=== PATIENT | male | born 1970 | race Caucasian/White ===

== ENCOUNTER → 2018-11-09 | Outpatient (CLI) | payer BC ==
--- NOTE | 2018-11-09 14:58 | RAD ---
Lumbar spine, 3 views, 11/09/2018: HISTORY: Low back pain No fracture or subluxation is identified. The intervertebral disc spaces are well-maintained. There are a few scattered marginal spurs. The paraspinous soft tissues are unremarkable. IMPRESSION: 1. Mild scattered degenerative changes. 2. No acute abnormality is detected. Electronically signed by: Perico Emmanuel MD (11/09/2018 2:53 PM) [facility]
--- NOTE | 2018-11-09 15:00 | RAD ---
Sternum, 2 views, 11/09/2018: HISTORY: Sternal pain The sternum is not clearly defined on these radiographs, as is often the case. A lucency projected over the sternal body on the lateral view is probably due to an overlying shadow, although a fracture cannot be excluded. If there is a high clinical suspicion of sternal pathology, CT scanning is suggested for further evaluation. Electronically signed by: Perico Emmanuel MD (11/09/2018 2:55 PM) [facility]
--- NOTE | 2018-11-09 15:02 | RAD ---
Thoracic spine, 3 views, 11/09/2018: HISTORY: Back pain No fracture or subluxation is evident. There are mild scattered marginal spurs. The paraspinous soft tissues are unremarkable. IMPRESSION: 1. Mild marginal spurring. 2. No acute abnormality is detected. Electronically signed by: Perico Emmanuel MD (11/09/2018 2:57 PM) [facility]
== END | disposition home or self-care (01) ==
LOC: RAD 13:38
PROVIDERS: ATTEND Family Medicine
DX: M47.896 Other spondylosis, lumbar region (principal); M46.06 Spinal enthesopathy, lumbar region; M46.04 Spinal enthesopathy, thoracic region; R07.2 Precordial pain
CPT/HCPCS: 71120; 72072; 72100

== ENCOUNTER → 2018-11-11 | Outpatient (CLI) | payer BC ==
[~2018-11-11] MED LIST: IOHEXOL 300 MG/ML 75 ML VIAL. IV ONE; IOHEXOL 300 MG/ML 75 ML VIAL. ONE
--- NOTE | 2018-11-11 12:17 | RAD ---
CT of the chest with contrast, 11/11/2018: HISTORY: Sternal pain Multidetector CT imaging was performed following an IV bolus injection of iodinated contrast material. The thoracic aorta is of normal caliber. The heart is mildly enlarged. No mediastinal or hilar adenopathy is evident. There is minimal dependent atelectasis in both lower lobes. No pulmonary mass or significant infiltrate is seen. There is no evidence of pleural fluid. There are mild scattered spurs in the spine. No fracture or destructive bony lesion is seen. IMPRESSION: 1. Mild cardiomegaly. 2. Minimal dependent atelectasis in both lungs. PQRS Compliance Statement: One or more of the following individualized dose reduction techniques were utilized for this examination: 1. Automated exposure control 2. Adjustment of the mA and/or kV according to patient size 3. Use of iterative reconstruction technique Electronically signed by: Perico Emmanuel MD (11/11/2018 12:13 PM) [facility]
== END | disposition home or self-care (01) ==
LOC: CT 08:36
PROVIDERS: ATTEND Family Medicine
DX: J98.11 Atelectasis (principal); I51.7 Cardiomegaly
CPT/HCPCS: 71260; Q9967

== ENCOUNTER → 2019-01-31 | Day surgery (SDC) | payer BC ==
[~2019-01-31] MED LIST changes: +ALBUTEROL SULFATE 2.5 MG/3 ML NEBU. NEB PRN; +ATROPINE 0.5 MG/5 ML DISP.SYRIN. IV PRN; -IOHEXOL 300 MG/ML 75 ML VIAL. IV ONE; -IOHEXOL 300 MG/ML 75 ML VIAL. ONE; +IV RINGERS SOLUTION,LACTATED 1,000 ML IV SCH; +LIDOCAINE 2% PF Vial for OR 5 ML VIAL. ONE; +NALOXONE 0.4 MG/ML VIAL. IV PRN; +ONDANSETRON PF 4 MG/2 ML VIAL. IV PRN; +PROPOFOL 60 ML IV ONE; +diphenhydrAMINE 50 MG/ML VIAL IV PRN
[2019-01-31 12:25] VITALS: BP 118/64
--- NOTE | 2019-02-01 16:07 | PATHOLOGY ---
[facility] Accession Number: [id number] . 01 Material submitted: . colon - COLON POLYP . 01 Clinical history: . Screening, family HX . 02 Diagnosis: Colon biopsies, colon polyp: - Hyperplastic polyp. . (JPM:mm; 02/01/2019) [facility]/02/01/2019 . 02 Comment: There are no adenomatous changes or evidence of malignancy. . (JPM:mm; 02/01/2019) . 02 Electronically signed: . Harpal Adamson MD, Pathologist NPI- [id number] . 01 Gross description: . Received in formalin labeled "Brisa, Garfield, polyp," and additionally labeled on the requisition as "colon," are 2 segments of lassiter soft tissue measuring 0.9 x 0.2 x 0.1 cm in aggregate dimensions and ranging from 0.4 to 0.5 cm in maximum dimension. The specimen is submitted entirely in cassette A1. (TSD; 01/31/2019) TOB/TOB . 02 Pathologist provided ICD-10: K63.5 . 02 CPT . 983028 Specimen Comment: A courtesy copy of this report has been sent to Specimen Comment: [phone], . Specimen Comment: Report sent to / DR MAXWELL Performed at: 01 [facility] [address], [place] [id number] MD Jaycob Tellez MD Phone: [phone] Performed at: 02 [facility] [address], [place] [id number] MD Harpal Adamson MD Phone: [phone]
== END | disposition home or self-care (01) ==
LOC: SURG 10:17
PROVIDERS: ATTEND Surgery
DX: Z12.11 Encounter for screening for malignant neoplasm of colon (principal); K63.5 Polyp of colon; Z72.89 Other problems related to lifestyle
CPT/HCPCS: 45380; 88305; J2704; J7120; J2001